=== PATIENT | female | born 1985 | race Two or more races ===

== ENCOUNTER 2023-07-13 20:49 | Emergency (ER) | payer MEDICAID ==
[~2023-07-13] VITALS: Ht 152.4 cm; Wt 74.0 kg
[2023-07-13 22:01] LABS: Urine Bacteria NONE SEEN /hpf (None Seen); Urine Blood Negative /uL (Negative); Urine Clarity Clear (Clear); Urine Color Colorless (Yellow); Urine Protein, UAD Negative (Negative); Urine Specific Gravity 1.012 (1.001-1.035); Urine Urobilinogen Normal (Negative); Urine WBC <1 /hpf (0 - 5); Urine pH 6.5 (5.0-8.0)
[2023-07-14 00:27] VITALS: BP 140/88; PULSE 100; RESP 16; TEMP 97.8; O2SAT 98
== END 2023-07-14 01:20 | disposition home or self-care (01) ==
LOC: ER 20:49
DX: O03.9 Complete or unspecified spontaneous abortion without complication (principal); R51.9 Headache, unspecified; Z3A.12 12 weeks gestation of pregnancy
CPT/HCPCS: 81001; 81025